=== PATIENT | female | born 1965 | race Caucasian/White ===

== ENCOUNTER 2022-08-01 10:10 | Day surgery (SDC) | payer BC, SELFPAY ==
[2022-08-01] VITALS (7 sets, daily range): BP systolic 86–136; BP diastolic 43–71; PULSE 80–102; RESP 16–18; TEMP 36.5–36.9; O2SAT 95–100; BMI 25.7
--- NOTE | 2022-08-01 11:04 | EXP.ANES.CKL ---
PFSH PFS Medical History History of constipation History of lipoma Surgical History History of carpal tunnel release of both wrists History of cholecystectomy History of hysterectomy History of tonsillectomy Hx of bladder repair surgery Hx of tubal ligation Family History Other Family history of acute heart failure Family history of cancer Family history of hypertension Social History Smoking Status: Never smoker alcohol intake: never substance use type: denies use current occupational status: employed Travel in the last 8 weeks: None special socorro needs: No agree to transfusion: No do you feel safe at home: Yes victim of physical abuse: No victim of emotional abuse: No victim of sexual abuse: No would you like helpful sources: No [facility] Anesthesia Checklist Patient Identification Patient Identification: Arm Band and Verbal (Name & ) Structural Data Admitted From: Home Planned Operative Procedure/s: Colonoscopy Consent for Planned Operative Procedure(s) Verified: Yes NPO Status Verified Time NPO: 00:00 Airway Assessment C-Spine Mobility Assessed: Yes TMJ Mobility Assessed: Yes Dentition: Dentures-poor fitting Neurological Assessment Level of Consciousness: Awake Hx Seizures: No Numbness or tingling in extremities: No Anesthesia Plan Anesthesia Risk discussed: Yes Anesthesia Plan: Verified ASA Class: I Anesthesia Type: MAC
--- NOTE | 2022-08-01 11:50 | HMH.SCOPE ---
Procedure: Date: 08/01/22 Patient Date of :: 1965 Procedure Performed:: Colonoscopy with polypectomy Indications:: Colon cancer screening Performing Provider:: Dakota Yoon MD Referring Provider:: Leela Green APRN Sedation:: propofol Procedure:: After placing the patient in the left lateral decubitus position, the colonoscopy was gently inserted into the rectum and under direct visualization advanced to the cecum which was identified by transillumination in the right lower quadrant, identification of the ileocecal valve, appendiceal orifice, and cecal strap. Color, texture, mucosa, and anatomy of the colon were carefully examined with the scope. Findings:: Anal canal: normal Rectum: normal Sigmoid colon: normal without polyps or inflammatory changes Descending colon: normal without polyps or inflammatory changes Splenic flexure: normal Transverse colon: normal, 0.7cm adenomatous polyp identified and removed with use of snare Hepatic flexure: normal Ascending colon: normal without polyps or inflammatory changes Cecum: normal Terminal ileum: not visualized Impression: Polyp of transverse colon Specimens:: Polyp, transverse colon Recommendations:: Repeat examination in about THREE years or so, sooner if clinically indicated. Complications:: None Estimated blood obtained (mL): 0
== END 2022-08-01 12:44 | disposition home or self-care (01) ==
PROVIDERS: PCP Nurse Practitioner Family; Visit Provider Internal Medicine Gastroenterology
PROC: 0DJD8ZZ Inspection of Lower Intestinal Tract, Via Natural or Artificial Opening Endoscopic (ICD-10-PCS; CPT 45378; principal; 2022-08-01 11:30)
DX: Z12.11 Encounter for screening for malignant neoplasm of colon (principal); D12.3 Benign neoplasm of transverse colon; Z86.010 Personal history of colon polyps; Z79.899 Other long term (current) drug therapy
CPT/HCPCS: 45385; J2704

== ENCOUNTER 2023-09-10 08:24 | Emergency (ER) | payer BC, SELFPAY ==
[2023-09-10 08:40] VITALS: BP 149/75; PULSE 84; RESP 19; TEMP 36.8; O2SAT 98; BMI 27.1
[2023-09-10 09:09] LABS: UTC Influenza A Antigen Negative (Negative); UTC Influenza B Antigen Negative (Negative)
--- NOTE | 2023-09-10 09:16 | ED_ITS ---
Discharge Plan Disposition Patient Disposition: Home, Self-Care Condition: Good Prescriptions Prescriptions: New benzonatate 100 mg capsule 100 mg PO TID PRN (Reason: cough) Qty: 30 0RF guaifenesin [Mucinex] 600 mg tablet extended release 12hr 1,200 mg PO BID PRN (Reason: cough) Qty: 20 0RF No Action amoxicillin 500 mg capsule 500 mg PO Q8H Patient Comments: TAKE 1 CAPSULE BY MOUTH EVERY 8 HOURS UNTIL GONE Referrals Follow up/Referrals: Provider,Referral, MD [Primary Care Provider] - See instructions Activity Restrictions/Add. Instructions Additional Instructions/Restrictions: *Monitor Temp, Over the counter Motrin or Tylenol as directed/as needed Tylenol every 4 hours and Motrin every 6 hours (as long as your family doctor has told you that you can take it) for fever or pain. and straight to ER if unable to lower temp less than 101.0 after medication given *Warm salt water gargles may help to soothe the throat *Throat Lozenges? *Warm fluids like tea with honey may help to soothe the throat? *Sleep elevated *Humidifier/Vaporizer Continue Amoxicillin as prescribed Your throat swab was sent for culture. Those results are typically sent to your primary care. Be sure to follow up in 2-3 days with your family doctor /primary care physician if no improvement so they can review those result and treat if necessary. If you don?t have a primary care doctor, I recommend you get one but in the mean time, you will have to return to a walk in clinic Follow up IMMEDIATELY for new or worsening symptoms or no Noticeable improvement over the next 48-72 hours. 911 for difficulty breathing or swallowing You were tested for today for ?Upper Respiratory Panel with COVID19 your test result should be back in the next 24hours, you may check your results on the [facility] if your COVID or Flu is positive you must Quarantine for 5 days Clinical Impressions Clinical Impression: Viral upper respiratory tract infection with cough Stand Alone Forms Stand Alone Forms: Work/School Release Instructions Patient Instructions: Cough Discharge ED Provider[place] [facility] [place] General Stated complaint: cough congestion vargas st fever nausea Mode of Arrival: Ambulatory Source of Information: Patient Limitations: No Limitations Time Seen by Provider: 09/10/23 09:16 Description of Symptoms (Recalled from Triage Doc. by RN): PATIENT C/O CHILLS, COUGH, AND WEAKNESS X 3 DAYS HEENT Symptoms (Recalled from RN notes): No Resp Symptoms (Recalled from RN notes): Yes Skin Symptoms (Recalled from RN notes): No MS Symptoms (Recalled from RN notes): No Functional Status (Recalled from RN notes): WNL History of Present Illness Provider Complaint: Patient states that she is currently on amoxicillin for tooth infection States that for the last 3 days she has been having chills, body aches, weak, sore throat and drainage States that someone in the house is sick to States that today she was still not feeling any better so she came in to get checked Related Data Home Medications Medication Instructions Recorded Confirmed amoxicillin 500 mg capsule 500 mg PO Q8H TOOTH EXTRACTION 09/10/23 09/10/23 Previous Rx's Medication Instructions Recorded benzonatate 100 mg capsule 100 mg PO TID PRN cough #30 caps 09/10/23 guaifenesin 600 mg tablet, 1,200 mg PO BID PRN cough #20 tabs 09/10/23 extended release 12 hr (Mucinex) Allergies Allergy/AdvReac Type Severity Reaction Status Date / Time simvastatin Allergy Unknown Verified 08/01/22 10:41 cimetidine [From Tagamet] Allergy Verified 08/01/22 10:41 Worker's Comp Is this a Worker's Comp case?: No [facility] Disclaimer: The information contained in this section may have been updated after the patient was seen, as this information can be updated by other users. Medical History History of constipation History of lipoma Surgical History History of carpal tunnel release of both wrists History of cholecystectomy History of hysterectomy History of tonsillectomy Hx of bladder repair surgery Hx of tubal ligation Family History Other Family history of acute heart failure Family history of cancer Family history of hypertension Social History Smoking Status: Never smoker alcohol intake: never substance use type: denies use current occupational status: employed Travel in the last 8 weeks: None special socorro needs: No agree to transfusion: No do you feel safe at home: Yes victim of physical abuse: No victim of emotional abuse: No victim of sexual abuse: No would you like helpful sources: No ROS Obtained: Yes All systems reviewed & no additional complaints except as documented and Yes Systems reviewed as appropriate & no additional complaints except as documented Constitutional Constitutional: Reports system reviewed and no additional complaints, except as documented, Reports as per HPI, Reports body ache, Reports chills, Reports fatigue and Reports headache(s) ENT Ears, Nose, Mouth, and Throat: Reports system reviewed and no additional complaints, except as documented, Reports as per HPI, Reports headache(s) and Reports sore throat Cardiovascular Cardiovascular: Reports system reviewed and no additional complaints, except as documented and Reports as per HPI Respiratory Respiratory: Reports system reviewed and no additional complaints, except as do cumented, Reports as per HPI and Reports cough Gastrointestinal Gastrointestingal: Reports system reviewed and no additional complaints, except as documented and as per HPI Genitourinary Female Genitourinary: Reports system reviewed and no additional complaints, except as documented and Reports as per HPI Neurologic Neurologic: Reports headache(s) Endocrine Endocrine: Reports fatigue Physical Exam General General appearance: alert and in no apparent distress ENT ENT exam: Present mucous membranes moist Expanded ENT Exam TM/Canal exam: Bilateral TM: bulging Nose exam: Absent sinus tenderness Throat exam: Present other (Pharyngeal erythema noted with PND) Respiratory Respiratory exam: Present normal lung sounds bilaterally; Absent respiratory distress or wheezes Cardiovascular Cardiovascular exam: Present regular rate, normal rhythm and normal heart sounds Abdominal Exam Abdominal exam: Present soft and normal bowel sounds; Absent distention or tenderness Neurological Exam Neurological exam: Present alert, oriented X3 and normal gait Medical Decision Making Christian Inquiry Pt receiving controlled substance: No Christian was queried for this patient: No Vital Signs: 09/10/23 08:40 Temperature 98.3 F Temperature Source Oral Pulse Rate [Left Brachial] 84 Respiratory Rate 19 Blood Pressure [Left Arm] 149/75 H Blood Pressure Mean [Left Arm] 99 Blood Pressure Source [Left Arm] Automatic Cuff Blood Pressure Position [Left Arm] Sitting 02 Sat by Pulse Oximetry 98 Oxygen Delivery Method Room Air Lab Data Lab results reviewed: Yes I reviewed the patient's lab results. Lab Results 09/10/23 08:46: Influenza Type A Ag Negative, Influenza Type B Ag Negative
[2023-09-10 09:40] VITALS: BP 149/75; PULSE 84; RESP 19; TEMP 36.8; O2SAT 98
[2023-09-10 09:42] LABS: Adenovirus,PCR Not Detected (NotDetected); Coronavirus 19, PCR Not Detected (NotDetected); Coronavirus 229E Not Detected (NotDetected); Coronavirus NL63 Not Detected (NotDetected); Coronavirus OC43 Not Detected (NotDetected); Coronovirus HKU1,PCR Not Detected (NotDetected); Human Metapneumovirus Not Detected (NotDetected); Influenza A, PCR Not Detected (NotDetected); Influenza AH1, 2009 Not Detected (NotDetected); Influenza AH1, PCR Not Detected (NotDetected); Influenza AH3,PCR Not Detected (NotDetected); Influenza B, PCR Not Detected (NotDetected); Parainfluenza 1, PCR Not Detected (NotDetected); Parainfluenza 2, PCR Not Detected (NotDetected); Parainfluenza 3, PCR Not Detected (NotDetected); Parainfluenza 4, PCR Not Detected (NotDetected); Respiratory Syncytial Virus Not Detected (NotDetected); Rhinovirus/Enterovirus Not Detected (NotDetected)
== END 2023-09-10 09:42 | disposition home or self-care (01) ==
PROVIDERS: Emergency Provider Nurse Practitioner
DX: R05.9 Cough, unspecified (principal); J06.9 Acute upper respiratory infection, unspecified; R51.9 Headache, unspecified; R50.9 Fever, unspecified; R07.0 Pain in throat; R11.0 Nausea; R09.81 Nasal congestion; R09.82 Postnasal drip; R53.83 Other fatigue
CPT/HCPCS: 87632; 87635; 87804; 99204; 99212; G0463

== ENCOUNTER 2023-12-13 09:55 | Emergency (ER) | payer BC, SELFPAY ==
[2023-12-13] VITALS (10 sets, daily range): BP systolic 101–159; BP diastolic 57–101; PULSE 92–115; RESP 16–20; TEMP 36.7–36.8; O2SAT 94–99; BMI 25.7
--- NOTE | 2023-12-13 09:54 | ECG_ITS ---
APPROVED REPORT Exam: Resting ECG HR:102 bpm ECG Measurements Heart Rate 102 AXES IA 136 P 62 QRSd 91 QRS 69 QT 330 T 45 QTc 388 Conclusion SINUS TACHYCARDIA NONSPECIFIC ST & T-WAVE ABNORMALITY ABNORMAL RHYTHM ECG Electronically signed by : CLINT VELAZQUEZ, 12/13/2023 11:45:15
--- NOTE | 2023-12-13 10:16 | CT_ITS ---
FINAL REPORT CLINICAL HISTORY: CP/Tachy FINDINGS: Thin section axial CT images of the chest were obtained with contrast. 3D reformatted images were also obtained. This study was performed with techniques to keep radiation doses as low as reasonably achievable (ALARA). Individualized dose reduction techniques using automated exposure control or adjustment of mA and/or kV according to the patient''s size were employed. There is no evidence of pulmonary embolism. There is no evidence of thoracic aortic aneurysm or dissection. There is no evidence of mediastinal or hilar mass or adenopathy. There is no evidence of pulmonary mass or nodule. There is mild bibasilar atelectasis. Limited images of the upper abdomen images reveal cholecystectomy. IMPRESSION: No evidence of pulmonary embolism or dissection. Mild bibasilar atelectasis. Reviewed, Interpreted and Dictated by Nolberto Dumont III, MD Transcribed by Rossy Donald Authenticated and [facility]
--- NOTE | 2023-12-13 10:16 | XR_ITS ---
FINAL REPORT CLINICAL HISTORY: cp COMPARISON: 09/10/2018 FINDINGS: SINGLE-VIEW CHEST The heart size is normal. The mediastinum is normal. There are mild right base opacities, favor atelectasis. There is no pneumothorax. IMPRESSION: Favor right base atelectasis. Reviewed, Interpreted and Dictated by Nolberto Dumont III, MD Transcribed by Rossy Donald Authenticated and [facility]
[2023-12-13 10:23] LABS: Chloride 106 mmol/L (98-107); Sodium 139 mmol/L (136-145)
[2023-12-13 10:24] LABS: Potassium 4.5 mmoL/L (3.5-5.1)
[2023-12-13 10:25] LABS: Basophils # 0.1 K/mm3 (0-0.2); Basophils % 0.7 % (0.1-2.0); Eosinophils # 0.1 K/mm3 (0.0-0.4); Eosinophils % 1.1 % (0.1-12.0); Hematocrit 43.3 % (37.0-47.0); Hemoglobin 14.1 g/dL (12.2-16.2); Lymphocytes # 0.6 K/mm3 (0.7-4.5); Lymphocytes % 5.9 % (10-50); Mean Corpuscular HGB Conc 32.6 g/dL (31.8-35.4); Mean Corpuscular Hemoglobin 32.3 pg (27.0-31.2); Mean Corpuscular Volume 99.2 fl (81-99); Mean Platelet Volume 9.4 fl (7.4-10.4); Monocytes # 0.2 K/mm3 (0.1-1.0); Neutrophils # 8.3 K/mm3 (1.8-7.8); Neutrophils % 90.3 % (37.0-80.0); Platelet Count 255 K/mm3 (142-424); Red Blood Count 4.37 M/mm3 (4.20-5.40); Red Cell Distribution Width 13.6 % (11.5-17.5); White Blood Count 9.2 K/mm3 (4.8-10.8)
[2023-12-13 10:26] LABS: Alanine Aminotransferase 100 U/L (12-78); Alkaline Phosphatase 139 U/L (38-126); Aspartate Amino Transferase 89 U/L (14-36); Bilirubin,Total 0.9 mg/dl (0.2-1.3); Blood Urea Nitrogen 10 mg/dl (7-17); Creatinine Clearance Estimated 80 mL/min (50-200); Estimated Glomerular Filt Rate 73 ml/min (>60); GFR (African American) 89 ML/MIN (>60); MANUAL DIFFERENTIAL MANUAL DIFFERENTIAL (MANUAL DIFF)
[2023-12-13 10:27] LABS: Albumin Level 4.2 g/dl (3.5-5.0); Albumin/Globulin Ratio 1.4 (1.1-1.8); Anion Gap 8.5 mEq/L (5-15); Calcium 9.1 mg/dl (8.4-10.2); Carbon Dioxide 29 mmol/L (22.0-30.0); Globulin 3.1 g/dL (1.3-3.2); Glucose 103 mg/dl (74-100); Total Protein,Serum 7.3 g/dl (6.3-8.2)
--- NOTE | 2023-12-13 10:27 | ED_ITS ---
Discharge Plan Disposition Patient Disposition: Home, Self-Care Prescriptions Prescriptions: New cefdinir 300 mg capsule 300 mg PO BID 10 Days Qty: 20 0RF Referrals Follow up/Referrals: Leela Green APRN [Primary Care Provider] - See instructions Activity Restrictions/Add. Instructions Additional Instructions/Restrictions: At this time it was felt you are safe to be discharged home. If new or worsening symptoms please do not hesitate to return the emergency department. If symptoms persist please follow-up with your family doctor as you are able. Please take antibiotics as prescribed. Clinical Impressions Clinical Impression: Chest pain, UTI (urinary tract infection), Rigors, Muscle ache Discharge ED Provider: Jorge Winchester [facility] General Chief Complaint: Chest Pain Stated Complaint: chest pain Time Seen by Provider: 12/13/23 10:00 Mode of Arrival: Ambulatory Source of Information: Patient Limitations: No Limitations Description of Symptoms (Recalled from ER Triage Doc. by RN): Patient reports cough, congestion and body aches. States this morning she began to shake uncontrolably and then began to have mild chest pain so she came in for evaluation. History of Present Illness HPI narrative: Patient is a 58-year-old female with no chronic comorbidities that she reports who presents emergency department for evaluation of chest pain. Onset was acute, occurring at approximately 6 this morning she had uncontrollable shivering with new onset substernal chest pain and right sided chest pain under her breast. Denies sick contacts. She has felt in over the past week or so that she was having urinary tract infection for which she has been taking Azo and an [id number] herbal supplement for which she feels her symptoms are improving. Patient has a history of previous bladder repair surgery. Denies significant cough, abdominal pain, other acute complaints at this time. Related Data Previous Rx's Medication Instructions Recorded cefdinir 300 mg capsule 300 mg PO BID UTI 10 days #20 caps 12/13/23 Allergies Allergy/AdvReac Type Severity Reaction Status Date / Time simvastatin Allergy Unknown Verified 08/01/22 10:41 cimetidine [From Tagamet] Allergy Verified 08/01/22 10:41 [facility] Disclaimer: The information contained in this section may have been updated after the patient was seen, as this information can be updated by other users. Medical History History of constipation History of lipoma Surgical History History of carpal tunnel release of both wrists History of cholecystectomy History of hysterectomy History of tonsillectomy Hx of bladder repair surgery Hx of tubal ligation Family History Other Family history of acute heart failure Family history of cancer Family history of hypertension Social History Smoking Status: Unknown if ever smoked alcohol intake: never substance use type: denies use current occupational status: employed Travel in the last 8 weeks: None special socorro needs: No agree to transfusion: No do you feel safe at home: Yes victim of physical abuse: No victim of emotional abuse: No victim of sexual abuse: No would you like helpful sources: No ROS Obtained: Yes Systems reviewed as appropriate & no additional complaints except as documented Physical Exam General General appearance: alert and other (Shivering in bed) Head Head exam: atraumatic and normocephalic Eye Eye exam: Present PERRL ENT ENT exam: Present mucous membranes moist Neck Neck exam: Present normal inspection Chest Chest inspection: Present normal inspection and symmetric chest wall rise Respiratory Respiratory exam: Present normal lung sounds bilaterally; Absent respiratory distress Cardiovascular Cardiovascular exam: Present normal rhythm and tachycardia Abdominal Exam Abdominal exam: Present soft; Absent tenderness Extremities Exam Extremities exam: Present normal inspection Neurological Exam Neurological exam: Present alert Psychiatric Psychiatric exam: Present normal affect Skin Skin exam: Present warm and dry HEART Score HEART Score HEART Score assessment performed?: Yes History (anamnesis): Moderately suspicious ECG: Normal Age: 45-65 years Risk factors: No known risk factors Troponin: </= normal limit HEART Score: 2 Critical Care Critical Care Time Critical Care Time: No Medical Decision Making Christian Inquiry Pt receiving controlled substance: No Vital Signs Vital Signs: 12/13/23 09:57 12/13/23 10:30 12/13/23 11:48 Temperature 98.0 F Temperature Source Oral Pulse Rate 110 H 115 H Pulse Rate [Radial] 113 H Respiratory Rate 16 20 20 Blood Pressure 131/73 132/79 Blood Pressure [Right Arm] 159/101 H Blood Pressure Mean 93 88 Blood Pressure Mean [Right Arm] 120 Blood Pressure Source [Right Arm] Automatic Cuff Blood Pressure Position [Right Arm] Sitting 02 Sat by Pulse Oximetry 97 99 98 Oxygen Delivery Method Room Air 12/13/23 12:30 12/13/23 13:30 Temperature Temperature Source Pulse Rate 109 H 98 H Pulse Rate [Radial] Respiratory Rate 20 20 Blood Pressure 137/75 114/59 L Blood Pressure [Right Arm] Blood Pressure Mean 87 77 Blood Pressure Mean [Right Arm] Blood Pressure Source [Right Arm] Blood Pressure Position [Right Arm] 02 Sat by Pulse Oximetry 96 98 Oxygen Delivery Method Lab Data Labs: Lab Results 12/13/23 10:00: WBC 9.2, RBC 4.37, Hgb 14.1, Hct 43.3, MCV 99.2 H, MCH 32.3 H, MCHC 32.6, RDW 13.6, Plt Count 255, MPV 9.4, Neut % (Auto) 90.3 H, Lymph % (Auto) 5.9 L, Edwards % (Auto) 2.0, Eos % (Auto) 1.1, Baso % (Auto) 0.7, Neut # (Auto) 8.3 H, Lymph # (Auto) 0.6 L, Edwards # (Auto) 0.2, Eos # (Auto) 0.1, Baso # (Auto) 0.1, Total Counted 100, Neutrophils % (Manual) 91 H, Lymphocytes % (Manual) 7 L, Monocytes % (Manual) 2, Platelet Estimate Normal, RBC Morphology Normal, Sodium 139, Potassium 4.5, Chloride 106, Carbon Dioxide 29, Anion Gap 8.5, BUN 10, Creatinine 0.80, Estimated Creat Clear 80, Estimated GFR 73, Est GFR ( Amer) 89, Glucose 103 H, Calcium 9.1, Total Bilirubin 0.9, AST 89 H , ALT 100 H, Alkaline Phosphatase 139 H, Troponin I < 0.01, Total Protein 7.3, Albumin 4.2, Globulin 3.1, Albumin/Globulin Ratio 1.4 12/13/23 10:08: Urine Color Yellow, Urine Appearance Sl cloudy, Urine pH 7.0, Ur Specific Eakly 1.010, Urine Protein Negative, Urine Glucose (UA) Negative, Urine Ketones Negative, Urine Blood 3+, Urine Nitrate Negative, Urine Bilirubin Negative, Urine Urobilinogen 0.2, Ur Leukocyte Esterase 3+ A, Urine RBC 5-10, Urine WBC 20-50, Ur Squamous Epith Cells Occasional, Amorphous Sediment 1+, Urine Bacteria 2+ 12/13/23 10:47: SARS-CoV-2 (PCR) Not detected, Influenza A Untype (PCR) Not detected, Influenza Type B (PCR) Not detected 12/13/23 14:30: Troponin I < 0.01 12/13/23 10:00 12/13/23 10:00 Response Orders (Tests/Meds): ED MEDICATIONS Generic Name Dose Route Start Last Admin Trade Name Freq PRN Reason Stop Dose Admin Sodium Chloride 10 ml 12/13/23 11:07 Sodium Chloride 0.9% 10ml Syr (Rad Only) IV 01/12/24 11:06 NEEDED PRN Maintain IV Site Discontinued Medications Generic Name Dose Route Start Last Admin Trade Name Freq PRN Reason Stop Dose Admin Acetaminophen 1,000 mg 12/13/23 10:46 12/13/23 10:51 Acetaminophen 500mg Tab PO 12/13/23 10:47 1,000 mg ONCE ONE Administration Aspirin 324 mg 12/13/23 10:16 12/13/23 10:28 Aspirin 81mg Chewable Tablet PO 12/13/23 10:17 324 mg ONCE ONE Administration Lactated Ringer's 1,000 mls @ 999 mls/hr 12/13/23 10:29 12/13/23 10:45 Lactated Ringer's 1000 Ml Bag IV 12/13/23 11:29 999 mls/hr .Q1H1M ONE Administration Ceftriaxone Sodium 1 gm/ 50 mls @ 100 mls/hr 12/13/23 11:14 12/13/23 11:35 Sodium Chloride IV 12/13/23 11:43 100 mls/hr ONCE ONE Administration Iopamidol 100 ml 12/13/23 11:07 12/13/23 11:11 Iopamidol-370 (76%);100ml Bottle IV 12/13/23 11:08 100 ml ONCE ONE Administration Morphine Sulfate 4 mg 12/13/23 10:16 12/13/23 10:35 Morphine 4mg/Ml Syringe IV 12/13/23 10:17 Not Given ONCE ONE Sodium Chloride 50 ml 12/13/23 11:07 12/13/23 11:11 0.9 % Sodium Chloride 50 Ml Vial IV 12/13/23 11:08 50 ml ONCE ONE Administration ORDERS Category Date Time Status CT angio chest - dissection Stat Cat Scan 12/13/23 10:16 Completed CXR --portable [XR chest portable] Stat Exams 12/13/23 10:16 Completed CBC w/Auto Diff [Complete Blood Count Auto Diff] Stat Lab 12/13/23 10:00 Completed CMP [Comprehensive Metabolic Panel] Stat Lab 12/13/23 10:00 Completed Rapid PCR Covid and Flu A/B Stat Lab 12/13/23 10:47 Completed Trop I [Troponin I] Stat Lab 12/13/23 10:00 Completed Troponin I Q3H Lab 12/13/23 14:30 Completed Troponin I Q3H Lab 12/13/23 16:30 Ordered UA [Urinalysis and Microscopic] Stat Lab 12/13/23 10:08 Completed Blood Culture Stat Micro 12/13/23 11:33 Received Urine Culture Stat Micro 12/13/23 10:08 Received ECG Data Tracing #1: ECG Narrative: Independently interpreted by me, rate is 102, rhythm is regular, axis is normal, no ST elevation in anatomical contiguous leads, QTc 388. MDM Narrative Medical Decision Narrative: In summary patient is a 58-year-old female with past medical history described above presents emergency department for evaluation of chest pain and shivering. Patient is hemodynamically stable nontoxic-appearing upon arrival, afebrile, tachycardic. Differential diagnosis includes viral syndrome with associated rigors, pulmonary embolism, aortic dissection, ACS, urinary tract infection, among others. Workup will be conducted with hematologic labs, chest x-ray, EKG, CTA chest, UA, viral swab. Initial inventions include IV Tylenol, aspirin, crystalloid bolus. Morphine was offered at bedside of which patient declines at this time. Workup reviewed by me, hematologic labs are nonactionable, no significant leukocytosis, no critical electrolyte abnormalities, mild transaminitis, urinalysis interpreted by me and consistent with significant infection for which ceftriaxone will be administered. No significant proteinuria on urinalysis or AUBREY or back pain to suggest pyelonephritis. CTA no acute pathology. Serial troponins undetectably low. Repeat evaluation patient had dull right-sided chest pain, no substernal chest pain. Given this patient is appropriate for outpatient management at this time with outpatient follow-up with cardiology and will be discharged with a course of cefdinir and was given multiple return precautions verbalized understanding.
[2023-12-13] MEDS: ASPIRIN 81MG CHEWABLE TABLET 324 MG PO (10:28)
[2023-12-13 10:32] LABS: Microscopic, Urine URINE MICROSCOPIC (MICROSCOPIC)
[2023-12-13 10:37] LABS: Appearance,Urine SL CLOUDY (Clear); Bilirubin,Urine Negative (Negative); Blood, Urine 3+ (Negative); Color,Urine YELLOW (Yellow); Glucose,Urine (UA) Negative (Negative); Ketones,Urine Negative (Negative); Leukocyte Esterase,Urine 3+ (Negative); Nitrate,Urine Negative (Negative); Protein,Urine Negative (Negative); Urobilinogen,Urine 0.2 EU/dl (0.2)
[2023-12-13 10:41] LABS: Troponin I < 0.01 ng/ml (0.00-0.034)
[2023-12-13] MEDS: LACTATED RINGERS 1000ML 1,000 ML 999 ML IV (10:45)
[2023-12-13 10:51] LABS: Amorphous Sediment,Urine 1+ /lpf; Bacteria,Urine 2+ /lpf; Squamous Epithelial Cell,Urine Occasional #/hpf (0-5); WBC,Urine 20-50 #/hpf (0-3)
[2023-12-13] MEDS: ACETAMINOPHEN 500MG TAB 1000 MG PO (10:51)
[2023-12-13 10:52] LABS: Coronavirus 19, PCR Not Detected (NotDetected); Influenza A, PCR Not Detected (NotDetected); Influenza B, PCR Not Detected (NotDetected)
[2023-12-13 11:01] LABS: Lymphocytes % 7 % (10-50); Monocytes % 2 % (2-9); Neutrophils % 91 % (42-76); Platelet Estimate Normal; RBC Morphology Normal; Total Cells Counted 100
[2023-12-13] MEDS: 0.9 % SODIUM CHLORIDE 50 ML VIAL IV (11:11)
[2023-12-13] MEDS: IOPAMIDOL-370 (76%);100ML BOTTLE 100 ML IV (11:11)
--- NOTE | 2023-12-13 11:23 | PC.NURSE ---
lab is at bedside collecting blood culture.
[2023-12-13] MEDS: CEFTRIAXONE 1 GM 1 GM in 0.9 % SODIUM CHLORIDE 50 ML IV (11:35)
--- NOTE | 2023-12-13 13:27 | PC.NURSE ---
pt resting in bed. family at bedside. call light within reach. no needs voiced at this time.
[2023-12-13 15:07] LABS: Troponin I < 0.01 ng/ml (0.00-0.034)
--- NOTE | 2023-12-15 13:38 | PC.NURSE ---
preliminary urine culture discussed with dr. burton, pt on abx, no new orders at this time
--- NOTE | 2023-12-18 04:28 | PC.NURSE ---
final urine culture resulted. pt discharged on cefdinir 300mg po bid x10. positive result for ecoli for which cefdinir covers. received prelim blood cultures with neg results. no change in care process at this time pending final blood cx results.
== END 2023-12-13 15:33 | disposition home or self-care (01) ==
PROVIDERS: Emergency Provider Emergency Medicine; PCP Nurse Practitioner Family
DX: R07.89 Other chest pain (principal); N39.0 Urinary tract infection, site not specified; B96.29 Other Escherichia coli [E. coli] as the cause of diseases classified elsewhere; R00.0 Tachycardia, unspecified; R74.01 Elevation of levels of liver transaminase levels
CPT/HCPCS: 36415; 71045; 71275; 80053; 81001; 84484; 85007; 85025; 87040; 87086; 87636; 93005; 96365; 96375; 99285; J0696; Q9967

== ENCOUNTER 2023-12-17 09:38 | Outpatient (CLI) | payer BC, SELFPAY ==
--- NOTE | 2023-12-17 09:44 | XR_ITS ---
FINAL REPORT CLINICAL HISTORY: RESPIRATORY TRACT INFECTION. chest pain, soa, body aches COMPARISON: 12/13/2023 FINDINGS: Two views of the chest were obtained. The heart size and pulmonary vascularity are within normal limits. The mediastinum is normal. No acute pulmonary abnormality is identified. There is no pneumothorax. The bony thorax is intact. IMPRESSION: No active cardiopulmonary disease. Reviewed, Interpreted and Dictated by Nolberto Dumont III, MD Transcribed by Gabrielle Epps Authenticated and [facility]
[2023-12-17 10:38] LABS: Basophils # 0.1 K/mm3 (0-0.2); Basophils % 0.9 % (0.1-2.0); Eosinophils # 0.1 K/mm3 (0.0-0.4); Hematocrit 43.2 % (37.0-47.0); Hemoglobin 13.9 g/dL (12.2-16.2); Lymphocytes # 1.6 K/mm3 (0.7-4.5); Lymphocytes % 22.7 % (10-50); Mean Corpuscular HGB Conc 32.3 g/dL (31.8-35.4); Mean Corpuscular Hemoglobin 32.3 pg (27.0-31.2); Mean Corpuscular Volume 100.2 fl (81-99); Mean Platelet Volume 8.6 fl (7.4-10.4); Monocytes # 0.6 K/mm3 (0.1-1.0); Neutrophils # 4.7 K/mm3 (1.8-7.8); Neutrophils % 65.5 % (37.0-80.0); Platelet Count 274 K/mm3 (142-424); Red Blood Count 4.31 M/mm3 (4.20-5.40); Red Cell Distribution Width 13.4 % (11.5-17.5); White Blood Count 7.1 K/mm3 (4.8-10.8)
[2023-12-17 11:29] LABS: Alanine Aminotransferase 56 U/L (12-78); Albumin/Globulin Ratio 1.5 (1.1-1.8); Alkaline Phosphatase 174 U/L (38-126); Aspartate Amino Transferase 33 U/L (14-36); Bilirubin,Total 0.5 mg/dl (0.2-1.3); Blood Urea Nitrogen 12 mg/dl (7-17); Calcium 9.4 mg/dl (8.4-10.2); Carbon Dioxide 30 mmol/L (22.0-30.0); Chloride 104 mmol/L (98-107); Estimated Glomerular Filt Rate 73 ml/min (>60); GFR (African American) 89 ML/MIN (>60); Globulin 2.6 g/dL (1.3-3.2); Glucose 98 mg/dl (74-100); Sodium 140 mmol/L (136-145); Total Protein,Serum 6.6 g/dl (6.3-8.2)
== END 2023-12-17 23:59 | disposition home or self-care (01) ==
PROVIDERS: PCP Nurse Practitioner Family; Visit Provider Nurse Practitioner Family
DX: J22 Unspecified acute lower respiratory infection (principal); N39.0 Urinary tract infection, site not specified; R74.01 Elevation of levels of liver transaminase levels
CPT/HCPCS: 36415; 71046; 80053; 85025

== ENCOUNTER 2024-09-16 12:18 | Emergency (ER) | payer BC, SELFPAY ==
[2024-09-16] VITALS (11 sets, daily range): BP systolic 117–154; BP diastolic 70–94; PULSE 70–86; RESP 16; TEMP 36.7; O2SAT 98; BMI 24.3
--- NOTE | 2024-09-16 12:31 | XR_ITS ---
FINAL REPORT CLINICAL HISTORY: Fall foot/ankle pain FINDINGS: RIGHT FOOT 3 views of the right foot were obtained. There is no acute fracture or dislocation. Visualized joint spaces are normally aligned. Soft tissues are unremarkable. IMPRESSION: No acute bony abnormality. Reviewed, Interpreted and Dictated by Hunter Rivera MD Transcribed by Dagmar Gautam Authenticated and [facility]
--- NOTE | 2024-09-16 12:32 | XR_ITS ---
FINAL REPORT CLINICAL HISTORY: Foot/Ankle pain after fall FINDINGS: RIGHT ANKLE: 3 views of the right ankle were obtained. There is no acute fracture or dislocation. The joint spaces are intact. There is no soft tissue abnormality. IMPRESSION: No acute fracture Reviewed, Interpreted and Dictated by Hunter Rivera MD Transcribed by Dagmar Gautam Authenticated and [facility]
--- NOTE | 2024-09-16 12:32 | CT_ITS ---
FINAL REPORT TECHNIQUE: Axial images were obtained of the lumbar spine by computed tomography. Coronal and sagittal reconstruction process performed. This study was performed with techniques to keep radiation doses as low as reasonably achievable (ALARA). Individualized dose reduction techniques using automated exposure control or adjustment of mA and/or kV according to the patient''s size were employed. CLINICAL HISTORY: Lumbar spine pain, fall, bilateral esthesia BLE FINDINGS: There is no acute fracture or subluxation. There is lumbar scoliosis convex to the right of approximately 25 degrees. There is moderately advanced disc space narrowing and endplate sclerosis eccentric to the left at L2-3. Moderate osteophyte formations are seen at L1-2 and L2-3. Note is made of a 1 mm nonobstructing stone in the lower pole of the left kidney. L1-2: Unremarkable. L2-3: Mild diffuse disc bulge with endplate hypertrophy eccentric to the left. There is mild to moderate left neuroforaminal narrowing. L3-4: Mild diffuse disc bulge with mild left neuroforaminal narrowing. L4-5: Unremarkable. L5-S1: Unremarkable. IMPRESSION: No acute bony abnormality. Neuroforaminal narrowing on the left at L2-3 and L3-4. Reviewed, Interpreted and Dictated by Hunter Rivera MD Transcribed by Dagmar Gautam Authenticated and [facility]
--- NOTE | 2024-09-16 12:32 | XR_ITS ---
FINAL REPORT CLINICAL HISTORY: Fall/ankle/foot/lower limb pain. FINDINGS: RIGHT TIBIA AND FIBULA There is no acute fracture or dislocation. The joint spaces are intact. There is no soft tissue abnormality. IMPRESSION: No acute fracture Reviewed, Interpreted and Dictated by Hunter Rivera MD Transcribed by Dagmar Gautam Authenticated and [facility]
--- NOTE | 2024-09-16 12:32 | PC.NURSE ---
Pt noted to be able to wiggle toes. Swelling noted to the lateral foot. Splint is in place from EMS. Strong pulses. brisk cap refill.
--- NOTE | 2024-09-16 12:34 | CT_ITS ---
FINAL REPORT TECHNIQUE: Axial CT images were performed through the head. Coronal reformatted images were submitted. This study was performed with techniques to keep radiation doses as low as reasonably achievable (ALARA). Individualized dose reduction techniques using automated exposure control or adjustment of mA and/or kV according to the patient's size were employed. CLINICAL HISTORY: Fall/trauma FINDINGS: The ventricles are normal in size. There is no evidence of hemorrhage. There is no mass or edema identified. There is no abnormal extra-axial fluid seen. The sinuses are well aerated. IMPRESSION: No acute intracranial process. Reviewed, Interpreted and Dictated by Hunter Rivera MD Transcribed by Dagmar Gautam Authenticated and [facility]
--- NOTE | 2024-09-16 12:37 | ED_ITS ---
<Statement entered by Janice Young MD - 09/16/24 15:02> I was consulted by the MAC, and we discussed the complexity of problems being addressed. I approved the treatment and management plan for this patient's care in the emergency department, thus performing a substantive portion of the medical decision making. Janice Young MD Discharge Plan Disposition Patient Disposition: Home, Self-Care Condition: Good Chief Complaint: Extremity Injury, Lower Prescriptions Prescriptions: No Action cefdinir 300 mg capsule 300 mg PO BID 10 Days Qty: 20 0RF Referrals Follow up/Referrals: Provider,Referral, [Referring] - See instructions Activity Restrictions/Add. Instructions Additional Instructions/Restrictions: Turn to the emergency department any worsening signs or symptoms, no relief symptomatology within the first 5 to 7 days, recommend rest ice compression elevation [id number] pain medicines as needed for pain. Follow-up with family doctor/orthopedic doctor as directed. Clinical Impressions Clinical Impression: Fall, Ankle sprain and strain Stand Alone Forms Stand Alone Forms: Work/School Release Instructions Patient Instructions: Sprain, DI for Ankle Sprain Print Language Print Language: Slovenian Discharge ED Provider: Janice Young General Adult HPI General Chief complaint: Extremity Injury, Lower Stated complaint: Fall- right foot pain Time Seen by Provider: 09/16/24 12:22 Mode of Arrival: EMS Source of Information: Patient Limitations: No Limitations Description of Symptoms (Recalled from ER Triage Doc. by RN): pt states she was sitting at her kitchen table and when she got up her R foot/leg was numb. pt states this is a chronic occurance when she is immobile. pt states she fell and her R ankle rotated internally. pt presents with a hematoma to her R anterior foot, positvie pulses and only pain with manipulation. pt is able to move all of her toes. History of Present Illness HPI narrative: 59-year-old female presents to the emergency department, via EMS for a fall, patient states that she was sitting at her kitchen table when her right and left leg went numb . She states that this is quite common for her, and she notices it at varying length of times when she is sitting down she will have numbness and tingling in her bilateral lower extremities, she does have some chronic lumbar spine pain at baseline sees chiropractor for this. She states when she got up, she noticed that her foot was numb and she went to place her foot on the ground and her foot and ankle went behind me , she denies striking the head, denies any LOC presyncopal syncopal episode, she denies any neck pain mid thoracic spine pain, lower lumbar spine pain, no hip or chest pain, recent sick contacts, no illness, no fever cough congestion sore throat chills, abdominal pain nausea vomiting constipation diarrhea, has any urinary bladder or bowel dysfunction, does have history of what sounds like uterine/rectal prolapse repair, denies any saddle esthesia, denies any upper or lower extremity weakness. She has no other real relevant past medical history, she tells me that she has been told I have high cholesterol , but does not take any medications for this. She tells me that she only utilizes herbal supplements and vitamins . She denies any alcohol tobacco or drug use. Triage vitals unremarkable. Related Data Previous Rx's ?Medication ?Instructions ?Recorded cefdinir 300 mg capsule 300 mg PO BID UTI 10 days #20 caps 12/13/23 Allergies Allergy/AdvReac Type Severity Reaction Status Date / Time simvastatin Allergy Unknown Verified 08/01/22 10:41 cimetidine (From Tagamet) Allergy Verified 08/01/22 10:41 [facility] Disclaimer: The information contained in this section may have been updated after the patient was seen, as this information can be updated by other users. Medical History History of constipation History of lipoma Surgical History History of carpal tunnel release of both wrists History of cholecystectomy History of hysterectomy History of tonsillectomy Hx of bladder repair surgery Hx of tubal ligation Family History Other Family history of acute heart failure Family history of cancer Family history of hypertension Social History Smoking Status: Never smoker alcohol intake: never substance use type: denies use current occupational status: employed Travel in the last 8 weeks: None special socorro needs: No agree to transfusion: No do you feel safe at home: Yes victim of physical abuse: No victim of emotional abuse: No victim of sexual abuse: No would you like helpful sources: No Have you lived/traveled outside [place] in past 30 days?: No Contact w/someone who lives/traveled outside [place] past 30 days?: No Exposure to someone with infectious disease in past 14 days?: No Do you have a fever (greater than 100.4 F or 38 C)?: No Have you tested positive for COVID-19: No Exposed to someone with COVID-19 in past 14 days?: No Do you have a sore throat?: No Do you have a cough?: No Do you have any weakness?: No Do you have any diarrhea?: No Are you experiencing any unusual bleeding?: No Do you have any muscle aches/pain?: No Do you have any abdominal pain?: No Are you experiencing loss of taste or smell?: No ROS Obtained: Yes All systems reviewed & no additional complaints except as documented Physical Exam General General appearance: alert and in no apparent distress Head Head exam: atraumatic and normocephalic Eye Eye exam: Present PERRL and EOMI ENT ENT exam: Present mucous membranes moist Neck Neck exam: Present normal inspection Chest Chest inspection: Present normal inspection and symmetric chest wall rise Respiratory Respiratory exam: Present normal lung sounds bilaterally; Absent respiratory distress Cardiovascular Cardiovascular exam: Present regular rate and normal rhythm Abdominal Exam Abdominal exam: Present soft and normal bowel sounds; Absent tenderness, guarding, rebound or rigidity Extremities Exam Extremities exam: Present normal inspection, tenderness, joint swelling and other (Right lower extremity around the foot and ankle has a small area of hematoma, mild soft tissue swelling around the lateral malleolus, there is pain to palpation to the lateral malleolus and lateral aspect of the dorsum of the foot, otherwise neurovascular intact. Good strength with plantarflexion a); Absent full ROM Back Exam Back exam: Present normal inspection Neurological Exam Neurological exam: Present alert and oriented X3 Psychiatric Psychiatric exam: Present normal affect Skin Skin exam: Present warm and dry Medical Decision Making Medical Records Medical records reviewed: Yes I reviewed the patient's medical records. Screening: Per USPSTF and CDC recommendations, given the prevalence of disease in our region, it is our hospital?s policy to screen for HIV and viral Hepatitis for all patients aged 18 and over and those with ongoing risk factors. Christian Inquiry Pt receiving controlled substance: No Christian was queried for this patient: No Vital Signs: 09/16/24 12:20 09/16/24 12:31 09/16/24 12:31 Temperature 98.1 F Temperature Source Oral Pulse Rate [Left] 86 Respiratory Rate 16 Blood Pressure 150/94 H 154/74 H Blood Pressure [Right Arm] 150/94 H Blood Pressure Mean 112 100 Blood Pressure Mean [Right Arm] 112 Blood Pressure Source [Right Arm] Automatic Cuff Blood Pressure Position [Right Arm] Sitting 02 Sat by Pulse Oximetry 98 Oxygen Delivery Method Room Air 09/16/24 12:45 09/16/24 13:18 09/16/24 13:30 Temperature Temperature Source Pulse Rate [Left] Respiratory Rate Blood Pressure 144/79 H 117/76 135/70 Blood Pressure [Right Arm] Blood Pressure Mean 99 88 82 Blood Pressure Mean [Right Arm] Blood Pressure Source [Right Arm] Blood Pressure Position [Right Arm] 02 Sat by Pulse Oximetry Oxygen Delivery Method 09/16/24 13:45 09/16/24 14:01 09/16/24 14:15 Temperature Temperature Source Pulse Rate [Left] Respiratory Rate Blood Pressure 128/79 148/91 H 151/77 H Blood Pressure [Right Arm] Blood Pressure Mean 95 107 117 Blood Pressure Mean [Right Arm] Blood Pressure Source [Right Arm] Blood Pressure Position [Right Arm] 02 Sat by Pulse Oximetry Oxygen Delivery Method Orders (Tests/Meds): ORDERS Category Date Time Status CT head/brain wo con Stat Cat Scan 09/16/24 12:[address] lumbar spine wo con Stat Cat Scan 09/16/24 12:32 Completed XR ankle RT 2V Stat Exams 09/16/24 12:32 Completed XR foot RT min 3V Stat Exams 09/16/24 12:31 Completed XR tibia fibula RT 2V Stat Exams 09/16/24 12:32 Completed Medical Decision Narrative: 59-year-old female presents emergency department via EMS for a fall and right lower extremity pain/swelling, differential diagnosis to include but not limited to Galvan fracture, pseudo Galvan fracture, other metatarsal fracture, foot sprain/strain, ankle sprain/strain, Tri mall fracture, bimall fracture, tib-fib fracture, generative disc disease of lumbar spine, lumbar spinal fracture, acute SDH, closed head injury, traumatic SAH. Discussed patient case with attending physician Will obtain x-rays of the patient's right foot, right ankle and right tib-fib region, as well as CT lumbar spine and CT head without contrast further evaluation/characterization, I offered patient p.o. analgesia at the bedside, she denies at this time. I reviewed the patient's foot x-ray on the right along with corresponding radiologic report no acute bony abnormality. I reviewed the patient's right tib-fib x-ray along the corresponding radiologic report no acute fracture Reviewed the patient's right ankle x-ray along the corresponding radiologic report no acute fracture. I reviewed the patient CT lumbar spine without contrast on the corresponding radiologic report no acute bony abnormality neuroforaminal narrowing on the left at L2-L3 and L3-L4 I reviewed the patient's CT head without contrast on the corresponding radiologic report no acute intracranial process. Lamination patient at 2:40 PM, patient is resting comfortably in the bed, I recommend rest compression elevation, return to the emergency any worsening signs or symptoms follow-up PCP orthopedic provider as directed, I offered p.o. analgesia as well as compression to include crutches, Kristian wrap and walking boot the patient here in the emerged part and she is not at this time she would like to pursue this treatment at home I think this is appropriate. Strict ED return precautions were given. Patient voiced understand agree with current treatment plan/discharge plan. Critical Care Critical Care Time Critical Care Time: No
--- NOTE | 2024-09-16 13:04 | PC.NURSE ---
Pt assisted to bathroom via wheelchair
--- NOTE | 2024-09-16 13:17 | PC.NURSE ---
Patient returns from x-ray
--- NOTE | 2024-09-16 15:10 | PC.NURSE ---
Pt's ride arrives to bedside. Pending disc arrival then patient can be discharged.
== END 2024-09-16 15:21 | disposition home or self-care (01) ==
PROVIDERS: Emergency Provider Student in an Organized Health Care Education/Training Program; PCP Nurse Practitioner Family
DX: S93.401A Sprain of unspecified ligament of right ankle, initial encounter (principal); M79.671 Pain in right foot; M25.571 Pain in right ankle and joints of right foot; R20.2 Paresthesia of skin; W18.30XA Fall on same level, unspecified, initial encounter; Y93.89 Activity, other specified; Y92.000 Kitchen of unspecified non-institutional (private) residence as the place of occurrence of the external cause
CPT/HCPCS: 70450; 72131; 73590; 73600; 73630; 99284

== ENCOUNTER 2025-01-18 19:00 | Emergency (ER) | payer BC, SELFPAY ==
--- NOTE | 2025-01-18 18:52 | HMH.EDGENADL ---
Discharge Plan Disposition Patient Disposition: Home, Self-Care Condition: Good Prescriptions Prescriptions: New methocarbamol 750 mg tablet 750 mg PO Q6H PRN (Reason: muscle spasm) Qty: 20 0RF prednisone 50 mg tablet 50 mg PO DAILY 5 Days Qty: 5 0RF Referrals Follow up/Referrals: Leela Green APRN [Primary Care Provider] - See instructions Activity Restrictions/Add. Instructions Additional Instructions/Restrictions: I recommend taking Tylenol alternating with Motrin to help with pain and swelling. If you have continued new or worsening signs or symptoms follow-up with your PCP return to the ER as needed. Clinical Impressions Clinical Impression: Fall Qualifiers: Encounter type: initial encounter Qualified Code(s): W19.XXXA - Unspecified fall, initial encounter Stand Alone Forms Stand Alone Forms: Work/School Release Print Language Print Language: [place] Discharge ED Provider: Val Gardner General Adult HPI <NOAM Curtis - Last Filed: 01/18/25 20:15> General Chief complaint: PAIN Stated complaint: LEFT HIP PAIN, FALL Time Seen by Provider: 01/18/25 19:02 History of Present Illness HPI narrative: Patient presents for evaluation of a accidental fall. Patient was leaving a pony when she tripped and fell. She landed on her left side and rolled out of the way. She did not strike her head did not lose consciousness. She reports that she is had increasing pain in her left side specifically her left hip. She was able to bear weight and ambulate but the pain is worsened. She denies any loss of motor or sensory any numbness tingling. She also has thoracic and lumbar pain after her fall. She denies shortness of breath hemoptysis hematochezia melena nausea vomit diarrhea. Related Data Previous Rx's ?Medication ?Instructions ?Recorded methocarbamol 750 mg tablet 750 mg PO Q6H PRN muscle spasm #20 01/18/25 tabs prednisone 50 mg tablet 50 mg PO DAILY 5 days #5 tabs 01/18/25 Allergies Allergy/AdvReac Type Severity Reaction Status Date / Time simvastatin Allergy Unknown Verified 08/01/22 10:41 cimetidine (From Tagamet) Allergy Verified 08/01/22 10:41 PFSH <NOAM Curtis - Last Filed: 05/12/25 20:15> [facility] Disclaimer: The information contained in this section may have been updated after the patient was seen, as this information can be updated by other users. Medical History History of constipation History of lipoma Surgical History History of carpal tunnel release of both wrists History of cholecystectomy History of hysterectomy History of tonsillectomy Hx of bladder repair surgery Hx of tubal ligation Family History Other Family history of acute heart failure Family history of cancer Family history of hypertension Social History Smoking Status: Never smoker alcohol intake: never substance use type: denies use current occupational status: employed Travel in the last 8 weeks?: None special socorro needs: No agree to transfusion: No do you feel safe at home: Yes victim of physical abuse: No victim of emotional abuse: No victim of sexual abuse: No would you like helpful sources: No Have you lived/traveled outside [place] in past 30 days?: No Contact w/someone who lives/traveled outside US past 30 days?: No Exposure to someone with infectious disease in past 14 days?: No Do you have a fever (greater than 100.4 F or 38 C)?: No Have you tested positive for COVID-19?: No Exposed to someone with COVID-19 in past 14 days?: No Do you have a sore throat?: No Do you have a cough?: No Do you have any weakness?: No Do you have any diarrhea?: No Are you experiencing any unusual bleeding?: No Do you have any muscle aches/pain?: No Do you have any abdominal pain?: No Are you experiencing loss of taste or smell?: No <NOAM Curtis - Last Filed: 01/18/25 20:15> ROS Obtained: Yes Systems reviewed as appropriate & no additional complaints except as documented Physical Exam <NOAM uCrtis - Last Filed: 01/18/25 20:15> General General appearance: alert and in no apparent distress Respiratory Respiratory exam: Present normal lung sounds bilaterally Cardiovascular Cardiovascular exam: Present regular rate Neurological Exam Neurological exam: Present alert, oriented X3 and CN II-XII intact Medical Decision Making <NOAM Curtis - Last Filed: 01/18/25 20:15> Medical Records Medical records reviewed: Yes I reviewed the patient's medical records. Screening: Per USPSTF and CDC recommendations, given the prevalence of disease in our region, it is our hospital?s policy to screen for HIV and viral Hepatitis for all patients aged 18 and over and those with ongoing risk factors. Christian Inquiry Pt receiving controlled substance: No Vital Signs: 01/18/25 19:01 Temperature 97.8 F Temperature Source Oral Pulse Rate [Radial] 87 Respiratory Rate 16 Blood Pressure [Right Arm] 150/90 H Blood Pressure Mean [Right Arm] 110 Blood Pressure Source [Right Arm] Automatic Cuff Blood Pressure Position [Right Arm] Sitting 02 Sat by Pulse Oximetry 100 Oxygen Delivery Method Room Air Orders (Tests/Meds): ORDERS Category Date Time Status CT bony pelvis Stat Cat Scan 01/18/25 19:[address] cervical spine wo con Stat Cat Scan 01/18/25 19:[address] head/brain wo con Stat Cat Scan 01/18/25 19:[address] lumbar spine wo con Stat Cat Scan 01/18/25 19:[address] thoracic spine wo con Stat Cat Scan 01/18/25 19:20 Completed Ankle XR - Left minimum 3 Views [XR ankle LT min 3V] Exams 01/18/25 19:19 Completed Stat Femur XR left 2 views [XR femur LT 2V] Stat Exams 01/18/25 19:19 Completed Knee XR left 3 views [XR knee LT 3V] Stat Exams 01/18/25 19:19 Completed Tibia/fibula XR left 2 views [XR tibia fibula LT 2V] Exams 01/18/25 19:19 Completed Stat HIV Combo Stat Lab 01/18/25 19:05 Ordered Hepatitis C Ab Qual. W/ RFX Stat Lab 01/18/25 19:05 Ordered Medical Decision Narrative: In summary patient is a 1-year-old female who presents to the emergency department for evaluation of a fall. Patient is hemodynamically stable upon arrival, afebrile. Physical exam is remarkable for tenderness to palpation in the midline thoracic and lumbar spine but no palpable bony deformity contusions abrasions ecchymosis. She is neurovascular intact in all 4 extremities and has full range of motion passively and actively. She has tenderness to palpation at the lateral left hip and posteriorly, pain with range of motion testing of the left knee and ankle but again she is neurovascular intact distally with full range of motion no loss of motor or sensory.. Differential diagnosis includes contusion versus fracture. Initial workup will be conducted with noncontrast CT scans of the head and neck dorsal spine bony pelvis and plain film x-rays of the left lower extremity. Initial interventions were offered including Tylenol Motrin however patient declined any interventions for now. Initial workup reviewed by me and my informal trepidation of her noncontrasted CT scans and plain film x-rays shows no evidence of acute abnormality or acute process prior to radiology read. Please see final read for formal interpretation.. Upon repeat evaluation patient is able to ambulate in the ER without assistance.. Given this patient is appropriate for discharge with follow-up with PCP for any continued new or worsening signs or symptoms and recommendation continue to take Tylenol alternating with Motrin for pain and swelling. Patient verbalized understanding and agreement. <Val Gardner, DO - Last Filed: 01/18/25 20:24> Vital Signs: 01/18/25 19:01 Temperature 97.8 F Temperature Source Oral Pulse Rate [Radial] 87 Respiratory Rate 16 Blood Pressure [Right Arm] 150/90 H Blood Pressure Mean [Right Arm] 110 Blood Pressure Source [Right Arm] Automatic Cuff Blood Pressure Position [Right Arm] Sitting 02 Sat by Pulse Oximetry 100 Oxygen Delivery Method Room Air Orders (Tests/Meds): ORDERS Category Date Time Status CT bony pelvis Stat Cat Scan 01/18/25 19:[address] cervical spine wo con Stat Cat Scan 01/18/25 19:[address] head/brain wo con Stat Cat Scan 01/18/25 19:[address] lumbar spine wo con Stat Cat Scan 01/18/25 19:[address] thoracic spine wo con Stat Cat Scan 01/18/25 19:20 Completed Ankle XR - Left minimum 3 Views [XR ankle LT min 3V] Exams 01/18/25 19:19 Completed Stat Femur XR left 2 views [XR femur LT 2V] Stat Exams 01/18/25 19:19 Completed Knee XR left 3 views [XR knee LT 3V] Stat Exams 01/18/25 19:19 Completed Tibia/fibula XR left 2 views [XR tibia fibula LT 2V] Exams 01/18/25 19:19 Completed Stat HIV Combo Stat Lab 01/18/25 19:05 Ordered Hepatitis C Ab Qual. W/ RFX Stat Lab 01/18/25 19:05 Ordered Medical Decision Narrative: In summary patient is a 59-year-old female who presents to the emergency department for evaluation of a fall. Patient is hemodynamically stable upon arrival, afebrile. Physical exam is remarkable for tenderness to palpation in the midline thoracic and lumbar spine but no palpable bony deformity contusions abrasions ecchymosis. She is neurovascular intact in all 4 extremities and has full range of motion passively and actively. She has tenderness to palpation at the lateral left hip and posteriorly, pain with range of motion testing of the left knee and ankle but again she is neurovascular intact distally with full range of motion no loss of motor or sensory.. Differential diagnosis includes contusion versus fracture. Initial workup will be conducted with noncontrast CT scans of the head and neck dorsal spine bony pelvis and plain film x-rays of the left lower extremity. Initial interventions were offered including Tylenol Motrin however patient declined any interventions for now. Initial workup reviewed by me and my informal trepidation of her noncontrasted CT scans and plain film x-rays shows no evidence of acute abnormality or acute process prior to radiology read. Please see final read for formal interpretation.. Upon repeat evaluation patient is able to ambulate in the ER without assistance.. Given this patient is appropriate for discharge with follow-up with PCP for any continued new or worsening signs or symptoms and recommendation continue to take Tylenol alternating with Motrin for pain and swelling. Patient verbalized understanding and agreement. DO Jj: I was consulted by the MAC, and we discussed the complexity of the problems being addressed. I approved the treatment and management plan for this patient's care in the emergency department, thus performing a substantive portion of the medical decision making. Val Gardner DO Critical Care <NOAM Curtis - Last Filed: 01/18/25 20:15> Critical Care Time Critical Care Time: No
[2025-01-18 19:00] VITALS: BP 124/72; PULSE 89; O2SAT 99
[2025-01-18 19:01] VITALS: BP 150/90; PULSE 87; RESP 16; TEMP 36.6; O2SAT 100; BMI 23.1
--- NOTE | 2025-01-18 19:19 | XR_ITS ---
PROCEDURE INFORMATION: Exam: XR Left Knee Exam date and time: 01/18/2025 7:31 PM Age: 59 years old Clinical indication: Injury or trauma; Fall; Blunt trauma; Knee; Left; Additional info: Tripped and fell on the left side TECHNIQUE: Imaging protocol: Radiologic exam of the left knee. Views: 3 views. COMPARISON: CR XR KNEE LT 3V 01/18/2025 7:31 PM FINDINGS: Bones/joints: Normal. Soft tissues: Normal. IMPRESSION: No acute findings.
--- NOTE | 2025-01-18 19:19 | XR_ITS ---
PROCEDURE INFORMATION: Exam: XR Left Tibia and Fibula Exam date and time: 01/18/2025 7:31 PM Age: 59 years old Clinical indication: Injury or trauma; Fall; Blunt trauma; Lower leg; Left; Additional info: Tripped and fell on the left side TECHNIQUE: Imaging protocol: Radiologic exam of the left tibia and fibula. Views: 2 views. COMPARISON: CR XR TIBIA FIBULA LT 2V 01/18/2025 7:31 PM FINDINGS: Bones/joints: Normal. Soft tissues: Normal. IMPRESSION: No acute findings.
--- NOTE | 2025-01-18 19:19 | XR_ITS ---
PROCEDURE INFORMATION: Exam: XR Left Femur Exam date and time: 01/18/2025 7:31 PM Age: 59 years old Clinical indication: Injury or trauma; Fall; Blunt trauma; Thigh or upper leg; Left; Additional info: Tripped and fell on the left side TECHNIQUE: Imaging protocol: Radiologic exam of the left femur. Views: 2 views. COMPARISON: CR XR FEMUR LT 2V 01/18/2025 7:31 PM FINDINGS: Bones/joints: Unremarkable. No acute fracture. Soft tissues: Unremarkable. IMPRESSION: No acute findings.
--- NOTE | 2025-01-18 19:19 | XR_ITS ---
PROCEDURE INFORMATION: Exam: XR Left Ankle Exam date and time: 01/18/2025 7:31 PM Age: 59 years old Clinical indication: Injury or trauma; Fall; Blunt trauma; Ankle; Left; Additional info: Tripped and fell on the left side TECHNIQUE: Imaging protocol: Radiologic exam of the left ankle. Views: 3 or more views. COMPARISON: CR XR TIBIA FIBULA LT 2V 01/18/2025 7:31 PM FINDINGS: Bones/joints: Normal. Soft tissues: Normal. IMPRESSION: No acute findings.
--- NOTE | 2025-01-18 19:20 | CT_ITS ---
PROCEDURE INFORMATION: Exam: CT Thoracic Spine Without Contrast Exam date and time: 01/18/2025 7:48 PM Age: 59 years old Clinical indication: Pain and injury or trauma; Fall; Blunt trauma (contusions or hematomas); Pain in thoracic spine; Additional info: Tripped and fell on the left side TECHNIQUE: Imaging protocol: Computed tomography of the thoracic spine without contrast. Radiation optimization: All CT scans at this facility use at least one of these dose optimization techniques: automated exposure control; mA and/or kV adjustment per patient size (includes targeted exams where dose is matched to clinical indication); or iterative reconstruction. COMPARISON: CT LUMBAR SPINE WO CON 09/16/2024 1:09 PM FINDINGS: Bones/joints: No acute fracture. Anatomic alignment. Soft tissues: Unremarkable. IMPRESSION: No acute findings identified.
--- NOTE | 2025-01-18 19:20 | CT_ITS ---
PROCEDURE INFORMATION: Exam: CT Head Without Contrast Exam date and time: 01/18/2025 7:46 PM Age: 59 years old Clinical indication: Injury or trauma; Fall; Blunt trauma (contusions or hematomas); Additional info: Tripped and fell on the left side TECHNIQUE: Imaging protocol: Computed tomography of the head without contrast. Radiation optimization: All CT scans at this facility use at least one of these dose optimization techniques: automated exposure control; mA and/or kV adjustment per patient size (includes targeted exams where dose is matched to clinical indication); or iterative reconstruction. COMPARISON: CT HEAD/BRAIN WO CON 09/16/2024 1:07 PM FINDINGS: Brain: Mild generalized cerebral/cerebellar atrophy. The IACs are grossly normal. No extra-axial fluid collections. No evidence of acute intracranial hemorrhage. Cerebral/cerebellar hua-white matter differentiation is well maintained. No intracranial mass lesions. No midline shift or herniation. Cerebral ventricles: Ventricles normal. Pituitary gland and sella: The sella is grossly normal. Mild variant cerebellar tonsillar ectopia which does not meet criteria for Chiari 1. Paranasal sinuses: Mucosal thickening in the maxillary sinuses with small volume fluid content in the left maxillary sinus suspicious for acute on chronic sinusitis. The other paranasal sinuses are clear. No sinus fractures are identified. Mastoid air cells: Visualized mastoid air cells are clear. Cerumen accumulation in the external auditory canals bilaterally. Orbital cavities: No acute intraorbital findings. Bones: No acute osseous findings. Soft tissues: No acute soft tissue findings. Vasculature: Mild calcific atherosclerosis. No asymmetric vascular hyperdensities suggestive of thrombosis are identified. IMPRESSION: 1. No acute intracranial process. No intracranial hemorrhage or mass effect. 2. Maxillary sinusitis.
--- NOTE | 2025-01-18 19:20 | CT_ITS ---
PROCEDURE INFORMATION: Exam: CT Cervical Spine Without Contrast Exam date and time: 01/18/2025 7:48 PM Age: 59 years old Clinical indication: Neck pain; Additional info: Tripped and fell on the left side TECHNIQUE: Imaging protocol: Computed tomography of the cervical spine without contrast. Radiation optimization: All CT scans at this facility use at least one of these dose optimization techniques: automated exposure control; mA and/or kV adjustment per patient size (includes targeted exams where dose is matched to clinical indication); or iterative reconstruction. COMPARISON: CT CERVICAL SPINE WO CON 01/18/2025 7:48 PM FINDINGS: Bones: Craniocervical alignment is normal. The occipital condyles are intact. The odontoid is intact. Moderate osteoarthritic sclerosis and spurring at the atlantodens interval. No jumped or perched facets. Bilateral facet ankylosis C2-C3. No fractures. Reversal of cervical lordosis may be positional or osteoarthritic in nature, versus changes of muscular strain/spasm. Slight 2 mm osteoarthritic retrolisthesis C5-C6. Moderate-severe osteoarthritic disc space narrowing with mild marginal spurring and endplate sclerosis C5-C6 and to a lesser degree C6-C7. No compressive soft disc protrusion or extrusion is evident by CT. No significant canal stenosis. There is left foraminal stenosis which is moderate at C5-C6 and severe at C6-C7. There is right foraminal stenosis which is moderate at C6-C7. Lungs: Minimal biapical pleuroparenchymal scarring. Thyroid: 7 mm low-density nodule in the right thyroid lobe which does not require further evaluation based on current consensus criteria. Soft tissues: No acute soft tissue abnormalities. IMPRESSION: 1. No evidence of acute fracture or traumatic subluxation. 2. Reversal of cervical lordosis may be positional or osteoarthritic in nature, versus changes of muscular strain/spasm. 3. Osteoarthritic changes with bilateral foraminal stenoses. COMMENTS: Consistent with the [employer]'s Incidental Findings Committee white paper (J Am Ole Radiol 2015): In patients aged 35 years and older with an incidental thyroid nodule equal to or greater than 1.[address], MRI or extrathyroidal US, further evaluation with dedicated thyroid US is recommended for patients with normal life expectancy and without comorbidities. For smaller nodules without suspicious features, no further evaluation or follow up is recommended.
--- NOTE | 2025-01-18 19:20 | CT_ITS ---
PROCEDURE INFORMATION: Exam: CT Pelvis Without Contrast, Skeleton Exam date and time: 01/18/2025 7:52 PM Age: 59 years old Clinical indication: Hip pain; Left hip; Additional info: Tripped and fell on the left side TECHNIQUE: Imaging protocol: Computed tomography of the pelvis without contrast. Exam focused on the skeleton. Radiation optimization: All CT scans at this facility use at least one of these dose optimization techniques: automated exposure control; mA and/or kV adjustment per patient size (includes targeted exams where dose is matched to clinical indication); or iterative reconstruction. COMPARISON: CT LUMBAR SPINE WO CON 01/18/2025 7:48 PM FINDINGS: Intestine: Diffuse sigmoid colonic diverticula without pericolonic fat stranding. Bones/joints: Unremarkable. No acute fracture. No dislocation. Soft tissues: Unremarkable. IMPRESSION: No acute findings.
--- NOTE | 2025-01-18 19:20 | CT_ITS ---
PROCEDURE INFORMATION: Exam: CT Lumbar Spine Without Contrast Exam date and time: 01/18/2025 7:48 PM Age: 59 years old Clinical indication: Low back pain; Additional info: Tripped and fell on the left side TECHNIQUE: Imaging protocol: Computed tomography of the lumbar spine without contrast. Radiation optimization: All CT scans at this facility use at least one of these dose optimization techniques: automated exposure control; mA and/or kV adjustment per patient size (includes targeted exams where dose is matched to clinical indication); or iterative reconstruction. COMPARISON: CT LUMBAR SPINE WO CON 09/16/2024 1:09 PM FINDINGS: Bones/joints: No acute fracture. Stable alignment. Multilevel degenerative disc and joint space changes most pronounced at L2/3. Vertebral body heights grossly preserved. Soft tissues: Unremarkable. IMPRESSION: No acute findings.
[2025-01-18 19:30] VITALS: BP 151/72; PULSE 86; O2SAT 97
[2025-01-18 20:00] VITALS: BP 142/88; PULSE 87; O2SAT 98
[2025-01-18 20:43] VITALS: BP 127/79; PULSE 81; RESP 18; TEMP 36.7; O2SAT 100
--- NOTE | 2025-01-18 20:45 | PC.NURSE ---
IV discontinued. Catheter tip intact. Bleeding controlled
== END 2025-01-18 20:45 | disposition home or self-care (01) ==
PROVIDERS: Emergency Provider Emergency Medicine; PCP Nurse Practitioner Family
DX: M25.552 Pain in left hip (principal); V80.010A Animal-rider injured by fall from or being thrown from horse in noncollision accident, initial encounter
CPT/HCPCS: 70450; 72125; 72128; 72131; 72192; 73552; 73562; 73590; 73610; 99285